=== PATIENT | male | born 1960 | race Caucasian/White ===

== ENCOUNTER 2017-01-28 12:12 | Observation (INO) | payer BC ==
[~2017-01-28] VITALS: Ht 175.3 cm; Wt 94.4 kg
[2017-01-28 16:08] LABS: HEMOGLOBIN 15.9 gm/dl (14.0-17.5); RED BLOOD COUNT 5.34 M/UL (4.20-5.50); WHITE BLOOD COUNT 14.6 K/UL (4.5-11.0)
[2017-01-28 16:35] LABS: BUN/CREATININE RATIO 21 (0-10)
[2017-01-29 05:04] LABS: HEMOGLOBIN 15.8 gm/dl (14.0-17.5); RED BLOOD COUNT 5.32 M/UL (4.20-5.50)
[2017-01-29 05:05] LABS: WHITE BLOOD COUNT 10.1 K/UL (4.5-11.0)
[2017-01-29 05:32] LABS: BUN/CREATININE RATIO 16 (0-10)
[2017-01-29] MEDS ORDERED: LOPRESSOR 25 MG25 MG PO (19:34)
== END 2017-01-29 20:25 | disposition home or self-care (01) ==
LOC: ER1 12:12 → M/S 18:40 → ZEROF 18:40 → M/S 22:16
PROVIDERS: Emergency Medicine; ADMIT Internal Medicine
DX: R07.89 Other chest pain (principal); D72.829 Elevated white blood cell count, unspecified; Z90.49 Acquired absence of other specified parts of digestive tract
CPT/HCPCS: ECHO; 36415; 71020; 78452; 80048; 80053; 80061; 82550; 82553; 83735; 83874; 84484; 85025; 93005; 93017; 93306; 99285; A9502; G0378

== ENCOUNTER 2020-12-02 11:01 | Emergency (ER) | payer BC ==
[~2020-12-02 11:01] MED LIST: BACTRIM DS TAB1 EACH PO; KEFLEX CAP 500500 MG PO; LOPRESSOR 25 MG25 MG PO
[2020-12-02 11:31] LABS: HEMOGLOBIN 16.5 gm/dl (14.0-17.5); RED BLOOD COUNT 5.39 M/UL (4.20-5.50); WHITE BLOOD COUNT 12.3 K/UL (4.5-11.0)
[2020-12-02] MEDS ORDERED: ONDANSETRON ODT4 MG SL (15:35)
[2020-12-02] MEDS ORDERED: FLOMAX 0.4 MG0.4 MG PO (15:35)
[2020-12-02] MEDS ORDERED: HYDROCODON-ACE1 EAC4 PO ×2 (15:46→15:49)
== END 2020-12-02 15:59 | disposition home or self-care (01) ==
LOC: ER1 11:01
PROVIDERS: Physician Assistant
DX: N13.2 Hydronephrosis with renal and ureteral calculous obstruction (principal); I10 Essential (primary) hypertension; Z90.49 Acquired absence of other specified parts of digestive tract
CPT/HCPCS: 80053; 81001; 83690; 85025; 96374; 96375; 96376; 99284; J1170; J1885; J2270; J2405; J2550

== ENCOUNTER 2021-01-16 06:28 | Emergency (ER) | payer BC ==
[~2021-01-16 06:28] MED LIST changes: +FLOMAX 0.4 MG0.4 MG PO; +HYDROCODON-ACE1 EAC4 PO; +ONDANSETRON ODT4 MG SL
[2021-01-16 07:00] LABS: HEMOGLOBIN 15.9 gm/dl (14.0-17.5); RED BLOOD COUNT 5.46 M/UL (4.20-5.50); WHITE BLOOD COUNT 10.4 K/UL (4.5-11.0)
[2021-01-16 07:35] LABS: BUN/CREATININE RATIO 25 (0-10)
[2021-01-16] MEDS ORDERED: CYCLOBENZAPRINE5 MG PO (09:52)
[2021-01-17] MEDS ORDERED: MEDROL DOSEPAK 24 MG PO (12:51)
== END 2021-01-16 10:20 | disposition home or self-care (01) ==
LOC: ER1 06:28
PROVIDERS: Emergency Medicine
DX: R07.9 Chest pain, unspecified (principal); M54.9 Dorsalgia, unspecified; I10 Essential (primary) hypertension
CPT/HCPCS: 71045; 80053; 81001; 82550; 82553; 83735; 83874; 84100; 84484; 85025; 85610; 85730; 93005; 99285

== ENCOUNTER 2021-01-17 11:33 | Emergency (ER) | payer BC ==
[~2021-01-17 11:33] MED LIST changes: +CYCLOBENZAPRINE5 MG PO
[2021-01-17] MEDS ORDERED: MEDROL DOSEPAK 24 MG PO (12:51)
== END 2021-01-17 13:47 | disposition home or self-care (01) ==
LOC: ER1 11:33
DX: M54.5 Low back pain (principal); I10 Essential (primary) hypertension; G89.29 Other chronic pain
CPT/HCPCS: 96372; 99283; J1100; J1885

== ENCOUNTER → 2021-01-18 | Outpatient (CLI) | payer BC ==
[~2021-01-18] MED LIST changes: +MEDROL DOSEPAK 24 MG PO
== END ==
LOC: KOH-I 10:53
DX: M50.122 Cervical disc disorder at C5-C6 level with radiculopathy (principal); M47.22 Other spondylosis with radiculopathy, cervical region; M48.02 Spinal stenosis, cervical region
CPT/HCPCS: 72141

== ENCOUNTER 2021-06-24 21:07 | Emergency (ER) | payer BC ==
[2021-06-24 22:20] LABS: HEMOGLOBIN 15.7 gm/dl (14.0-17.5); RED BLOOD COUNT 5.58 M/UL (4.20-5.50); WHITE BLOOD COUNT 9.3 K/UL (4.5-11.0)
[2021-06-24 22:57] LABS: BUN/CREATININE RATIO 18 (0-10)
== END 2021-06-25 03:27 | disposition home or self-care (01) ==
LOC: ER1 21:07
PROVIDERS: Physician Assistant
DX: R07.9 Chest pain, unspecified (principal); I10 Essential (primary) hypertension; Z79.01 Long term (current) use of anticoagulants; Z20.822 Contact with and (suspected) exposure to COVID-19
CPT/HCPCS: 71045; 80053; 82550; 82553; 83874; 84484; 85025; 93005; 99285; U0002

== ENCOUNTER 2021-07-04 04:17 | Inpatient (IN) | payer BC ==
[~2021-07-04] VITALS: Ht 175.3 cm; Wt 97.1 kg
[2021-07-04 05:02] LABS: HEMOGLOBIN 15.5 gm/dl (14.0-17.5); RED BLOOD COUNT 5.33 M/UL (4.20-5.50); WHITE BLOOD COUNT 8.9 K/UL (4.5-11.0)
[2021-07-04 05:23] LABS: BUN/CREATININE RATIO 18 (0-10)
[2021-07-04] MEDS ORDERED: MOBIC15 MG PO (15:40)
[2021-07-04] MEDS ORDERED: HYZAAR 100-12.1 EACH PO (15:41)
[2021-07-04] MEDS ORDERED: ASPIRIN EC81 MG PO (16:22)
[2021-07-05 03:59] LABS: HEMOGLOBIN 13.9 gm/dl (14.0-17.5); RED BLOOD COUNT 4.8 M/UL (4.20-5.50); WHITE BLOOD COUNT 6.9 K/UL (4.5-11.0)
[2021-07-05 04:33] LABS: BUN/CREATININE RATIO 18 (0-10)
[2021-07-06 08:57] LABS: HEMOGLOBIN 14.8 gm/dl (14.0-17.5); RED BLOOD COUNT 4.99 M/UL (4.20-5.50); WHITE BLOOD COUNT 7.2 K/UL (4.5-11.0)
[2021-07-06 09:24] LABS: BUN/CREATININE RATIO 15 (0-10)
[2021-07-08 08:01] LABS: HEMOGLOBIN 13.5 gm/dl (14.0-17.5); RED BLOOD COUNT 4.53 M/UL (4.20-5.50); WHITE BLOOD COUNT 7.4 K/UL (4.5-11.0)
[2021-07-08 08:27] LABS: BUN/CREATININE RATIO 19 (0-10)
[2021-07-08] MEDS ORDERED: DECADRON6 MG PO (12:48)
[2021-07-08] MEDS ORDERED: COMBIVENT RESPIM4 GM INH (12:48)
== END 2021-07-08 16:36 | disposition home or self-care (01) | DRG 177 ==
LOC: ER1 04:17 → CDU 08:48 → MED SURG 4 07-05 14:44
PROVIDERS: Physician Assistant; ADMIT Internal Medicine Infectious Disease
PROC: 3E0333Z Introduction of Anti-inflammatory into Peripheral Vein, Percutaneous Approach (ICD-10-PCS; principal; 2021-07-04)
PROC: XW033E5 Introduction of Remdesivir Anti-infective into Peripheral Vein, Percutaneous Approach, New Technology Group 5 (ICD-10-PCS; 2021-07-04)
PROC: 8E0ZXY6 Isolation (ICD-10-PCS; 2021-07-04)
DX: U07.1 COVID-19 (principal); J12.82 Pneumonia due to coronavirus disease 2019; J96.01 Acute respiratory failure with hypoxia; I10 Essential (primary) hypertension; M19.91 Primary osteoarthritis, unspecified site; E11.9 Type 2 diabetes mellitus without complications; K52.9 Noninfective gastroenteritis and colitis, unspecified; E87.6 Hypokalemia; E86.0 Dehydration; Z79.82 Long term (current) use of aspirin
CPT/HCPCS: 36415; 36600; 71045; 80053; 82550; 82553; 82803; 83735; 83874; 83880; 84132; 84484; 85025; 85610; 85730; 86140; 93005; 94760; 96374; 96375; 99285; J1100; J1650; J2405; J3475; J3480; J7030

== ENCOUNTER 2021-10-04 07:13 | Emergency (ER) | payer BC ==
[~2021-10-04 07:13] MED LIST changes: +ASPIRIN EC81 MG PO; +COMBIVENT RESPIM4 GM INH; +DECADRON6 MG PO; +HYZAAR 100-12.1 EACH PO; +MOBIC15 MG PO
[2021-10-04 07:55] LABS: HEMOGLOBIN 14.8 gm/dl (14.0-17.5); RED BLOOD COUNT 5.05 M/UL (4.20-5.50)
[2021-10-04 08:52] LABS: BUN/CREATININE RATIO 26 (0-10)
[2021-10-04] MEDS ORDERED: FLONASE 0.05% N16 GM (11:48)
== END 2021-10-04 12:01 | disposition home or self-care (01) ==
LOC: ER1 07:13
PROVIDERS: Physician Assistant
DX: R07.9 Chest pain, unspecified (principal); Z20.822 Contact with and (suspected) exposure to COVID-19; I10 Essential (primary) hypertension; Z90.49 Acquired absence of other specified parts of digestive tract
CPT/HCPCS: 71045; 80053; 82550; 82553; 83874; 84484; 85025; 93005; 99285; U0002

== ENCOUNTER 2021-11-28 18:35 | Emergency (ER) | payer BC ==
[~2021-11-28 18:35] MED LIST changes: +FLONASE 0.05% N16 GM
[2021-11-28 20:49] LABS: HEMOGLOBIN 15.8 gm/dl (14.0-17.5); RED BLOOD COUNT 5.53 M/UL (4.20-5.50); WHITE BLOOD COUNT 10.5 K/UL (4.5-11.0)
[2021-11-28 21:14] LABS: BUN/CREATININE RATIO 22 (0-10)
== END 2021-11-28 22:40 | disposition home or self-care (01) ==
LOC: ER1 18:35
PROVIDERS: Physician Assistant
DX: U07.1 COVID-19 (principal); I10 Essential (primary) hypertension
CPT/HCPCS: 0240U; 71045; 80053; 82550; 82553; 83874; 84484; 85025; 93005; 99285